=== PATIENT | male | born 1990 | race Caucasian/White ===

== ENCOUNTER 2017-10-25 02:18 | Emergency (ER) | payer OTHER ==
[~2017-10-25] VITALS: Ht 177.8 cm; Wt 77.1 kg
[~2017-10-25 02:18] MED LIST: BACTRIM DS TAB1 EACH PO
[2017-10-25] MEDS ORDERED: ERYTHROMYCIN E3.5 G3 OPHTHALMIC (02:52)
[2017-10-25 03:10] VITALS: BP 129/72
== END 2017-10-25 03:12 | disposition home or self-care (01) ==
LOC: M.ERS 02:18
DX: H57.8 Other specified disorders of eye and adnexa (principal); F17.210 Nicotine dependence, cigarettes, uncomplicated